=== PATIENT | female | born 1990 | race Two or more races ===

== ENCOUNTER 2017-01-09 21:41 | Emergency (ER) | payer OTHER ==
[2017-01-10 00:10] LABS: ABSOLUTE NEUTROPHIL COUNT 5.5 K/mm3 (1.8-7.7); BASO % 0.4 % (0.2-1.0); EOS # 0.2 (0.0-0.5); EOS % 1.7 % (0.9-2.9); HEMATOCRIT 37.5 % (37.0-47.0); HEMOGLOBIN 11.7 gm/l (12.0-16.0); IMM NEUT% 0.4 % (0-1); LYMPH # 3.2 (1.0-4.8); LYMPH % 32.9 % (15-45); MEAN CELL VOLUME 76.2 fl (81.0-99.0); MEAN CORPUSCULAR HEMOGLOBIN 23.8 pg (27.0-31.0); MEAN CORPUSCULAR HGB CONC 31.2 g/dl (33.0-37.0); MEAN PLATELET VOLUME 11.1 fl (7.4-10.4); MONO # 0.7 (0.0-0.8); MONO % 7.7 % (4-12); NEUT % 56.9 % (43-75); PLATELET COUNT 247 K/mm3 (130-400); RED CELL DISTRIBUTION WIDTH 16.4 % (11.5-14.5)
--- NOTE | 2017-01-10 08:10 | US ---
Clinical History: Vaginal bleeding and pelvic pain. Beta hCG is 249. Comparison: None Findings: Multiple grayscale, color-flow and duplex Doppler images during transabdominal and transvaginal pelvic ultrasound are obtained. No evidence of gestational sac, yolk sac or pole. There is no subchorionic hemorrhage.. Right ovary measures 4.5 x 3.3 x 3.3 cm with blood flow. Probable corpus luteal cyst is noted measuring 2.6 x 2.3 x 2.0 cm. Left ovary measures 2.2 x 2.7 x 2.1 cm with blood flow. Simple free fluid is identified within the cul-de-sac.. Endometrial stripe measures 2.6 cm. Pelvic survey reveals no gross abnormalities. Impression: No evidence of intrauterine gestation or ectopic . of unknown location. Ultrasound is not sensitive for the detection of products of conception in patients with beta hCG less than 1200. Ectopic cannot be excluded at this time. Spontaneous could be considered. Close clinical and radiographic follow-up are recommended with serial beta hCG and ultrasound. Preliminary report was provided by [facility] at approximately 0201 hours on 01/10/2017.
== END 2017-01-10 02:39 | disposition home or self-care (01) ==
LOC: ED 21:41
DX: R10.32 Left lower quadrant pain (principal); R11.2 Nausea with vomiting, unspecified; K59.00 Constipation, unspecified; E03.9 Hypothyroidism, unspecified